=== PATIENT | female | born 1945 | race Two or more races ===

== ENCOUNTER 2023-12-31 07:23 | Emergency (ER) | payer OTHER ==
[~2023-12-31] VITALS: Ht 167.6 cm; Wt 68.0 kg
[2023-12-31 07:27] VITALS: BP 164/95; PULSE 101; RESP 16; TEMP 98.3; O2SAT 99
[2023-12-31 08:01] LABS: BASOPHILS % (AUTO) 0.6 % (0.0-2.0); EOSINOPHILS # (AUTO) 0.1 K/uL (0-0.4); EOSINOPHILS % (AUTO) 0.7 % (0.0-4.0); HEMATOCRIT 39.4 % (36-48); HEMOGLOBIN 13.1 g/dL (12.0-16.0); LYMPHOCYTES # (AUTO) 0.9 K/uL (2.5-16.5); LYMPHOCYTES % (AUTO) 10.7 % (20.5-51.1); MEAN CORPUSCULAR HEMOGLOBIN 28 pg (27-31); MEAN CORPUSCULAR HGB CONC 33 g/dL (33-37); MONOCYTES # (AUTO) 0.3 K/uL (0.8-1.0); MONOCYTES % (AUTO) 3.1 % (1.7-9.3); NEUTROPHILS # (AUTO) 7.3 K/uL (1.8-7.7); NEUTROPHILS % (AUTO) 84.9 % (42.2-75.2); PLATELET COUNT (AUTO) 163 K/uL (140-450); RED BLOOD CELL COUNT(AUTO) 4.74 MIL/uL (4.20-5.40); RED CELL DISTRIBUTION WIDTH 14.7 % (11.6-13.7); WHITE BLOOD COUNT (AUTO) 8.6 K/uL (4.8-10.8)
[2023-12-31 08:08] LABS: APPEARANCE,URINE CLEAR (CLEAR); BILIRUBIN,URINE NEGATIVE (NEGATIVE); BLOOD, URINE TRACE-I (NEGATIVE); COLOR,URINE YELLOW (YELLOW); LEUKOCYTE ESTERASE ,URINE TRACE (NEGATIVE); NITRITE, URINE NEGATIVE (NEGATIVE); PROTEIN,URINE 2+ (NEGATIVE); UGLUCOSE 1+ (NEGATIVE); UROBILINOGEN,URINE 0.2 EU/dL (0.2 - 1)
[2023-12-31 08:21] LABS: ALANINE AMINOTRANSFERASE 25 U/L (12-78); ALBUMIN 4.1 g/dL (3.4-5.0); ALKALINE PHOSPHATASE 55 U/L (50-136); ANION GAP 14.9 (8-16); ASPARTATE AMINOTRANSFERASE 18 U/L (15-37); CALCIUM 10.4 mg/dL (8.5-10.1); CARBON DIOXIDE 25.8 mmol/L (21-32); CHLORIDE 100 mmol/L (98-107); CREATININE 1.3 mg/dL (0.6-1.3); GLUCOSE 253 mg/dL (74-106); POTASSIUM 3.7 mmol/L (3.5-5.1); SODIUM SERUM 137 mmol/L (136-145); TOTAL BILIRUBIN 0.4 mg/dL (0.0-1.0); TOTAL PROTEIN, SERUM 8.6 g/dL (6.4-8.2); UREA NITROGEN, BLOOD 45 mg/dL (7-18)
[2023-12-31 08:26] LABS: RBC,URINE 0-5 /HPF (0-5)
[2023-12-31 08:28] LABS: BACTERIA,URINE OCCASSIONAL /HPF (None Seen); SQUAMOUS EPITHELIAL CELL,UR 0-3 (FEW) /LPF (0-3 (FEW))
[2023-12-31] MEDS: LIDOCAINE 5% 1 EA PATCH TP ONE (09:18)
[2023-12-31] MEDS ORDERED: LID5T TP (09:52)
[2023-12-31 10:13] VITALS: BP 130/79; PULSE 91; RESP 16; TEMP 98.3; O2SAT 99
== END 2023-12-31 10:38 | disposition home or self-care (01) ==
LOC: MED 07:23
DX: M25.561 Pain in right knee (principal); G89.29 Other chronic pain; Z79.899 Other long term (current) drug therapy; Z88.1 Allergy status to other antibiotic agents; W18.39XA Other fall on same level, initial encounter; Y93.01 Activity, walking, marching and hiking; Y92.89 Other specified places as the place of occurrence of the external cause; Y99.8 Other external cause status
CPT/HCPCS: 36415; 72170; 73502; 73562; 80053; 81001; 84484; 85025; 87086; 93005; 99285